=== PATIENT | female | born 1940 | race Hispanic/Latino ===

== ENCOUNTER 2017-11-06 09:00 | Inpatient (IN) | payer MEDICARE ==
[2017-11-06 09:07] VITALS: BMI 27.3
--- NOTE | 2017-11-06 10:47 | ED PDOC ---
HPI: General Adult Time Seen by Provider: 11/06/17 09:37 Chief Complaint (Nursing): Weakness/Neurological Deficit Chief Complaint (Provider): Weakness/Neurological Deficit History Per: Patient History/Exam Limitations: no limitations Onset/Duration Of Symptoms: Days (x 1 week) Additional Complaint(s): 77 year old female with history of CAD, A-fib, a pacemaker placement and a shunt reports to the ED c/o generalized weakness and diarrhea, onset 1 week. Reports she had a cold and then diarrhea for one week. Regularly has dialysis Monday, Monday and Monday. Last treatment was Monday because she felt too unwell to go today. Denies fever, abdominal pain, chest pain, shortness of breath, vomiting, leg swelling. PMD: Dr. Smith at [facility]. Past Medical History Reviewed: Historical Data, Nursing Documentation, Vital Signs Vital Signs: Last Vital Signs Temp 97 F L 11/06/17 09:05 Pulse 70 11/06/17 14:24 Resp 18 11/06/17 14:24 BP 129/44 L 11/06/17 14:24 Pulse Ox 100 11/06/17 13:44 - Medical History PMH: Anemia, Atrial Fibrillation, Cardia Arrhythmia, Diabetes, HTN, Hypercholesterolemia, Malignancy (Breast, Uterus), Peripheral Edema, End Stage Renal Disease, Chronic Kidney Disease Denies: HIV - Surgical History Surgical History: CABG, Pacemaker - Family History Family History: States: Unknown Family Hx - Social History Current smoker - smoking cessation education provided: No Alcohol: None Drugs: Denies - Home Medications Home Medications: Ambulatory Orders Medication Instructions Recorded Sevelamer Carbonate [Renvela] 800 mg PO TID #0 tab 09/25/15 Allopurinol [Zyloprim] 100 mg PO DAILY 02/26/16 Alprazolam [Xanax] 0.5 mg PO BID PRN 02/26/16 Atorvastatin [Lipitor] 20 mg PO HS 02/26/16 B Complex W-C No.20/Folic Acid 1 cap PO QPM 02/26/16 [Carter Caps Softgel] [place]-3 Acid Ethyl Esters [Lovaza] 1 gm PO BID 02/26/16 Cinacalcet [Sensipar] 30 mg PO DAILY 07/15/16 Insulin Glargine,Hum.rec.anlog 10 unit SC BID 11/06/17 [Lantus] Magnesium Oxide [Mag-Oxide] 200 mg PO DAILY 11/06/17 - Allergies Allergies/Adverse Reactions: Allergies Allergy/AdvReac Type Severity Reaction Status Date / Time No Known Allergies Allergy Verified 11/06/17 09:26 Review of Systems ROS Statement: Except As Marked, All Systems Reviewed And Found Negative Constitutional: Negative for: Fever Cardiovascular: Negative for: Chest Pain Respiratory: Negative for: Shortness of Breath Gastrointestinal: Negative for: Vomiting, Abdominal Pain Musculoskeletal: Negative for: Other (leg swelling) Physical Exam - Reviewed Nursing Documentation Reviewed: Yes Vital Signs Reviewed: Yes - Physical Exam Appears: Positive for: Non-toxic, No Acute Distress Head Exam: Positive for: ATRAUMATIC, NORMOCEPHALIC Skin: Positive for: Warm, Dry, Pallor Eye Exam: Positive for: EOMI, Normal appearance, PERRL Cardiovascular/Chest: Positive for: Regular Rate, Rhythm Respiratory: Positive for: CNT, Normal Breath Sounds Gastrointestinal/Abdominal: Positive for: Normal Exam, Soft. Negative for: Tenderness, Distended Extremity: Positive for: Normal ROM. Negative for: Tenderness, Deformity Neurologic/Psych: Positive for: Alert, Oriented - Laboratory Results Result Diagrams: 11/06/17 10:51 11/06/17 10:51 - ECG O2 Sat by Pulse Oximetry: 100 (RA) Pulse Ox Interpretation: Normal - Radiology X-Ray: Interpreted by Me, Viewed By Me X-Ray Interpretation: No Acute Disease Medical Decision Making Medical Decision Making: TIme: 10:00 Impression: generalized fatigue (most likely due to dehydration) and acute diarrhea (most likely viral) Differential diagnoses: bacterial colitis Initial Plan: --CMP --CBC --PTT --Prothrombin time --Chest X-ray --Stool cx Her freelance digital project manager is Dr. Pizarro Her fur polisher is Dr. Hubbard Note, possible need for emergent dialysis because of symptoms. Time: 12:12 --Consulted Stevie Matute to arrange for dialysis treatment. Patient will be admitted to the hospital in observation due to acute chronic renal failure and need for dialysis. Scribe Attestation: Documented by Wanda Dotson, acting as a scribe for Lilian Vieira MD Provider Scribe Attestation: All medical record entries made by the Scribe were at my direction and personally dictated by me. I have reviewed the chart and agree that the record accurately reflects my personal performance of the history, physical exam, medical decision making, and the department course for this patient. I have also personally directed, reviewed, and agree with the discharge instructions and disposition. Disposition - Clinical Impression Clinical Impression: ESRD (end stage renal disease) - Patient ED Disposition Is Patient to be Admitted: Yes Discussed With DrLyly: Rafy Solis Doctor Will See Patient In The: Hospital Counseled Patient/Family Regarding: Studies Performed, Diagnosis - Disposition Disposition Time: 12:47 Condition: FAIR - Pt Status Changed To: Hospital Disposition Of: Observation - POA Present On Arrival: None
[2017-11-06 10:56] LABS: BASO # 0.1 K/uL (0.0-0.2); EOS # 0.1 K/uL (0.0-0.7); EOS % 0.8 % (0.0-4.0); HEMOGLOBIN 8.8 g/dL (12.0-16.0); LYMPH # 0.8 K/uL (1.0-4.3); LYMPH % 8.9 % (20.0-40.0); MEAN CELL VOLUME 96.3 fl (81.0-99.0); MEAN CORPUSCULAR HEMOGLOBIN 32.2 pg (27.0-31.0); MEAN CORPUSCULAR HGB CONC 33.5 g/dL (33.0-37.0); MEAN PLATELET VOLUME 9.7 fl (7.2-11.7); MONO # 0.4 K/uL (0.0-0.8); MONO % 4.8 % (0.0-10.0); NEUT # 7.8 K/uL (1.8-7.0); NEUT % 84.5 % (50.0-75.0); NRBC % 0.1 % (0.0-0.0); PLATELET COUNT 133 K/uL (130-400); RBC 2.73 Mil/uL (3.80-5.20); RED CELL DISTRIBUTION WIDTH 16.2 % (11.5-14.5); WHITE BLOOD COUNT 9.3 K/uL (4.8-10.8)
[2017-11-06 11:22] LABS: ALB/GLOB RATIO 1.4 (1.0-2.1); ALBUMIN 3.8 g/dL (3.5-5.0); CALCIUM 9.2 mg/dL (8.4-10.2)
[2017-11-06 11:36] LABS: INR 1.1 (0.9-1.2); PROTHROMBIN TIME 12.6 Seconds (9.8-13.1)
[2017-11-06 11:51] LABS: ANISOCYTOSIS SLIGHT; LYMPHOCYTE 13 % (20-50); MONOCYTE 3 % (0-10); NEUTROPHIL 84 % (42-75); PLATELET ESTIMATE NORMAL (NORMAL); TOTAL CELLS COUNTED 100
[2017-11-06 11:52] LABS: HYPOCHROMIC MODERATE; OVALOCYTES SLIGHT; TEARDROP CELLS SLIGHT
--- NOTE | 2017-11-06 13:15 | RAD ---
PROCEDURE: CHEST RADIOGRAPH, 1 VIEW HISTORY: dyspnea COMPARISON: Comparison chest dated 02/28/2016 FINDINGS: LUNGS: The central pulmonary vasculature is slightly increased ; rule out mild developing or chronic compensated pulmonary edema/ CHF. Suspect small bilateral effusions as well as mild bibasilar atelectasis. PLEURA: As above. No evidence of pneumothorax CARDIOVASCULAR: Sternotomy wires and prostatic valve replacement again noted. Interval placement single lead pacemaker. OSSEOUS STRUCTURES: No significant abnormalities. VISUALIZED UPPER ABDOMEN: Normal. OTHER FINDINGS: None. IMPRESSION: The central pulmonary vasculature is slightly increased ; rule out mild developing or chronic compensated pulmonary edema/ CHF. Suspect small bilateral effusions as well as mild bibasilar atelectasis.
[2017-11-06] MEDS: Omega-3-Acid Ethyl Esters 1 GM Cap PO SCH (16:39)
[2017-11-06] MEDS: Insulin Detemir 100 Units/ml Inj SC SCH (16:39)
[2017-11-06] MEDS: Multivitamin Vitamin B Complex (Nephro-Vite) Tab PO SCH (18:33)
--- NOTE | 2017-11-06 20:32 | CP.PCM.CON ---
History of Present Illness - History of Present Illness History of Present Illness: REASONS FOR CONSULT : ESRD ON HD ANEMIA OF CKD .. PT IS WELL KNOWN TO ME .. HAS MMP AND ON HD FOR THE LAST 2-3 YEARS CASE D/W LINDSEY ARMIJO AT LENGTH Time Seen by Provider: 11/06/17 09:37 Chief Complaint (Nursing): Weakness/Neurological Deficit Chief Complaint (Provider): Weakness/Neurological Deficit History Per: Patient History/Exam Limitations: no limitations Onset/Duration Of Symptoms: Days (x 1 week) Additional Complaint(s): 77 year old female with history of CAD, A-fib, a pacemaker placement and a shunt reports to the ED c/o generalized weakness and diarrhea, onset 1 week. Reports she had a cold and then diarrhea for one week. Regularly has dialysis Monday, Monday and Monday. Last treatment was Monday because she felt too unwell to go today. Denies fever, abdominal pain, chest pain, shortness of breath, vomiting, leg swelling. PMD: Dr. Smith at [facility]. Past Medical History Reviewed: Historical Data, Nursing Documentation, Vital Signs Vital Signs: Last Vital Signs Temp 97 F L 11/06/17 09:05 Pulse 70 11/06/17 14:24 Resp 18 11/06/17 14:24 BP 129/44 L 11/06/17 14:24 Pulse Ox 100 11/06/17 13:44 - Medical History PMH: Anemia, Atrial Fibrillation, Cardia Arrhythmia, Diabetes, HTN, Hypercholesterolemia, Malignancy (Breast, Uterus), Peripheral Edema, End Stage Renal Disease, Chronic Kidney Disease Denies: HIV - Surgical History Surgical History: CABG, Pacemaker - Family History Family History: States: Unknown Family Hx - Social History Current smoker - smoking cessation education provided: No Alcohol: None Drugs: Denies - Home Medications Home Medications: Ambulatory Orders Medication Instructions Recorded Sevelamer Carbonate [Renvela] 800 mg PO TID #0 tab 09/25/15 Allopurinol [Zyloprim] 100 mg PO DAILY 02/26/16 Alprazolam [Xanax] 0.5 mg PO BID PRN 02/26/16 Atorvastatin [Lipitor] 20 mg PO HS 02/26/16 B Complex W-C No.20/Folic Acid 1 cap PO QPM 02/26/16 [Carter Caps Softgel] [place]-3 Acid Ethyl Esters [Lovaza] 1 gm PO BID 02/26/16 Cinacalcet [Sensipar] 30 mg PO DAILY 07/15/16 Insulin Glargine,Hum.rec.anlog 10 unit SC BID 11/06/17 [Lantus] Magnesium Oxide [Mag-Oxide] 200 mg PO DAILY 11/06/17 - Allergies Allergies/Adverse Reactions: Allergies Allergy/AdvReac Type Severity Reaction Status Date / Time No Known Allergies Allergy Verified 11/06/17 09:26 Review of Systems ROS Statement: Except As Marked, All Systems Reviewed And Found Negative Constitutional: Negative for: Fever Cardiovascular: Negative for: Chest Pain Respiratory: Negative for: Shortness of Breath Gastrointestinal: Negative for: Vomiting, Abdominal Pain Musculoskeletal: Negative for: Other (leg swelling) Past Patient History - Infectious Disease Hx of Infectious Diseases: None - Tetanus Immunizations Tetanus Immunization: Unknown - Past Medical History & Family History Past Medical History?: Yes - Past Social History Smoking Status: Never Smoked - CARDIAC Hx Atrial Fibrillation: Yes Hx Cardia Arrhythmia: Yes Hx Hypercholesterolemia: Yes Hx Hypertension: Yes Hx Pacemaker: Yes Hx Peripheral Edema: Yes - PULMONARY Hx Respiratory Disorders: No - NEUROLOGICAL HX Cerebrovascular Accident: Yes - HEENT Hx Blind: Yes (right eye blindness) Other/Comment: Retinal detachment - RENAL Hx Chronic Kidney Disease: Yes - ENDOCRINE/METABOLIC Hx Diabetes Mellitus Type 2: Yes - HEMATOLOGICAL/ONCOLOGICAL Hx Anemia: Yes Hx Human Immunodeficiency Virus (HIV): No - MUSCULOSKELETAL/RHEUMATOLOGICAL Hx Falls: Yes Hx Gout: Yes - GENITOURINARY/GYNECOLOGICAL Hx Urinary Tract Infection: Yes - PSYCHIATRIC Hx Substance Use: No - SURGICAL HISTORY Hx Coronary Artery Bypass Graft: Yes - ANESTHESIA Hx Anesthesia: Yes Hx Anesthesia Reactions: Yes Hx Malignant Hyperthermia: No Meds Allergies/Adverse Reactions: Allergies Allergy/AdvReac Type Severity Reaction Status Date / Time No Known Allergies Allergy Verified 11/06/17 09:26 - Medications Medications: Current Medications Allopurinol (Zyloprim) 100 mg PO DAILY [facility] Alprazolam (Xanax) 0.5 mg PO BID PRN PRN Reason: Anxiety Atorvastatin Calcium (Lipitor) 20 mg PO HS [facility] Cinacalcet (Sensipar) 30 mg PO DAILY [facility] Insulin Detemir (Levemir) 10 units SC BID [facility] Last Admin: 11/06/17 16:39 Dose: 10 units Magnesium Oxide (Mag-Ox) 200 mg PO DAILY [facility] [id number] Ethyl Esters (Lovaza) 1 gm PO BID [facility] Last Admin: 11/06/17 16:39 Dose: 1 gm Sevelamer HCl (Renagel) 800 mg PO TID [facility] Last Admin: 11/06/17 16:40 Dose: 800 mg Vitamin B Complex/Vit C/Folic Acid (Nephro-Clayton) 1 tab PO QPM [facility] Last Admin: 11/06/17 18:33 Dose: 1 tab Results - Vital Signs Recent Vital Signs: Last Vital Signs Temp 97 F L 11/06/17 09:05 Pulse 70 11/06/17 14:24 Resp 20 11/06/17 15:22 BP 129/44 L 11/06/17 14:24 Pulse Ox 100 11/06/17 15:13 - Labs Result Diagrams: 11/06/17 10:51 11/06/17 10:51 Labs: Laboratory Results - last 24 hr 11/06/17 11/06/17 11/06/17 10:23 10:51 10:51 WBC 9.3 RBC 2.73 L Hgb 8.8 L Hct 26.3 L MCV 96.3 D MCH 32.2 H MCHC 33.5 RDW 16.2 H Plt Count 133 MPV 9.7 Neut % (Auto) 84.5 H Lymph % (Auto) 8.9 L [place] % (Auto) 4.8 Eos % (Auto) 0.8 Baso % (Auto) 1.0 Neut # 7.8 H Lymph # 0.8 L [place] # 0.4 Eos # 0.1 Baso # 0.1 Neutrophils % (Manual) 84 H Lymphocytes % (Manual) 13 L Monocytes % (Manual) 3 Platelet Estimate Normal Hypochromasia (manual) Moderate Basophilic Stippling Slight Anisocytosis (manual) Slight Tear Drop Cells Slight Ovalocytes Slight PT INR APTT Sodium 144 Potassium 4.0 Chloride 102 Carbon Dioxide 28 Anion Gap 18 BUN 72 H Creatinine 6.0 H Est GFR ( Amer) 8 Est GFR (Non-Af Amer) 7 POC Glucose (mg/dL) 108 Random Glucose 104 Calcium 9.2 Total Bilirubin 1.6 H AST 54 H ALT 30 Alkaline Phosphatase 114 Total Protein 6.5 Albumin 3.8 Globulin 2.7 Albumin/Globulin Ratio 1.4 11/06/17 11/06/17 11:10 15:43 WBC RBC Hgb Hct MCV MCH MCHC RDW Plt Count MPV Neut % (Auto) Lymph % (Auto) [place] % (Auto) Eos % (Auto) Baso % (Auto) Neut # Lymph # [place] # Eos # Baso # Neutrophils % (Manual) Lymphocytes % (Manual) Monocytes % (Manual) Platelet Estimate Hypochromasia (manual) Basophilic Stippling Anisocytosis (manual) Tear Drop Cells Ovalocytes PT 12.6 INR 1.1 APTT 29.0 Sodium Potassium Chloride Carbon Dioxide Anion Gap BUN Creatinine Est GFR ( Amer) Est GFR (Non-Af Amer) POC Glucose (mg/dL) 133 H Random Glucose Calcium Total Bilirubin AST ALT Alkaline Phosphatase Total Protein Albumin Globulin Albumin/Globulin Ratio Assessment & Plan - Assessment and Plan (Free Text) Assessment: ESRD ON HD .. WILL GIVE HD TDAY AND SCHEDULE FOR HD ON ANEMIA OF CKD .. WILL DO ANEMIA W/U .. START EPO AND VENOFER MMP P : C/O CURRENT MEDS C/O HD ANEMIA W/U AND MANAGEMENT - Date & Time Date: 11/06/17 Time: 16:00
[2017-11-07 06:29] LABS: BASO # 0.1 K/uL (0.0-0.2); BASO % 0.7 % (0.0-2.0); EOS # 0.1 K/uL (0.0-0.7); EOS % 1.5 % (0.0-4.0); HEMOGLOBIN 8.2 g/dL (12.0-16.0); LYMPH # 1.1 K/uL (1.0-4.3); LYMPH % 14.9 % (20.0-40.0); MEAN CELL VOLUME 97.5 fl (81.0-99.0); MEAN CORPUSCULAR HEMOGLOBIN 31.7 pg (27.0-31.0); MEAN CORPUSCULAR HGB CONC 32.5 g/dL (33.0-37.0); MEAN PLATELET VOLUME 9.6 fl (7.2-11.7); MONO # 0.6 K/uL (0.0-0.8); MONO % 7.7 % (0.0-10.0); NEUT # 5.8 K/uL (1.8-7.0); NEUT % 75.2 % (50.0-75.0); NRBC % 0.1 % (0.0-0.0); RBC 2.58 Mil/uL (3.80-5.20); RED CELL DISTRIBUTION WIDTH 16.2 % (11.5-14.5); WHITE BLOOD COUNT 7.7 K/uL (4.8-10.8)
[2017-11-07 07:06] LABS: ALB/GLOB RATIO 1.3 (1.0-2.1); ALBUMIN 3.5 g/dL (3.5-5.0); CALCIUM 9.4 mg/dL (8.4-10.2)
--- NOTE | 2017-11-07 08:04 | CP.PCM.HP ---
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 states missed session r/t not feeling well. has had "cold" x 2 wks since aortic valve replacement. at present pt states she is feeling better. no f/c, n/v/d. states diarrhea stopped and now stool is hard. no blood in stool. no abd pain. pt was for mobile dialysis last night but they were unable to come. will be dialysed today Present on Admission - Present on Admission Any Indicators Present on Admission: No Review of Systems - EENT Nose/Mouth/Throat: As Per HPI, Nasal Congestion Past Patient History - Infectious Disease Hx of Infectious Diseases: None - Tetanus Immunizations Tetanus Immunization: Unknown - Past Medical History & Family History Past Medical History?: Yes - Past Social History Smoking Status: Never Smoked - CARDIAC Hx Atrial Fibrillation: Yes Hx Cardia Arrhythmia: Yes Hx Hypercholesterolemia: Yes Hx Hypertension: Yes Hx Pacemaker: Yes Hx Peripheral Edema: Yes - PULMONARY Hx Respiratory Disorders: No - NEUROLOGICAL HX Cerebrovascular Accident: Yes - HEENT Hx Blind: Yes (right eye blindness) Other/Comment: Retinal detachment - RENAL Hx Chronic Kidney Disease: Yes - ENDOCRINE/METABOLIC Hx Diabetes Mellitus Type 2: Yes - HEMATOLOGICAL/ONCOLOGICAL Hx Anemia: Yes Hx Human Immunodeficiency Virus (HIV): No - MUSCULOSKELETAL/RHEUMATOLOGICAL Hx Falls: Yes Hx Gout: Yes - GENITOURINARY/GYNECOLOGICAL Hx Urinary Tract Infection: Yes - PSYCHIATRIC Hx Substance Use: No - SURGICAL HISTORY Hx Coronary Artery Bypass Graft: Yes - ANESTHESIA Hx Anesthesia: Yes Hx Anesthesia Reactions: Yes Hx Malignant Hyperthermia: No Meds Allergies/Adverse Reactions: Allergies Allergy/AdvReac Type Severity Reaction Status Date / Time No Known Allergies Allergy Verified 11/06/17 09:26 Physical Exam - Constitutional Appears: Well, Non-toxic, No Acute Distress - Head Exam Head Exam: ATRAUMATIC, NORMAL INSPECTION, NORMOCEPHALIC - Eye Exam Eye Exam: EOMI, Normal appearance, PERRL Pupil Exam: NORMAL ACCOMODATION, PERRL - ENT Exam ENT Exam: Mucous Membranes Moist, Normal Exam - Neck Exam Neck exam: Positive for: Normal Inspection - Respiratory Exam Respiratory Exam: Clear to Auscultation Bilateral, NORMAL BREATHING PATTERN - Cardiovascular Exam Cardiovascular Exam: REGULAR RHYTHM, RRR, +S1, +S2, Systolic Murmur - GI/Abdominal Exam GI & Abdominal Exam: Normal Bowel Sounds, Soft. absent: Tenderness - Extremities Exam Extremities exam: Positive for: full ROM, normal capillary refill, normal inspection, pedal pulses present - Back Exam Back exam: NORMAL INSPECTION - Neurological Exam Neurological exam: Alert, CN II-XII Intact, Normal Gait, Oriented x3, Reflexes Normal - Psychiatric Exam Psychiatric exam: Normal Affect, Normal Mood - Skin Skin Exam: Dry, Intact, Normal Color, Warm Results - Vital Signs Recent Vital Signs: Last Vital Signs Temp 98.0 F 11/07/17 07:52 Pulse 71 11/07/17 07:52 Resp 18 11/07/17 07:52 BP 125/73 11/07/17 07:52 Pulse Ox 95 11/07/17 07:52 - Labs Result Diagrams: 11/07/17 05:30 11/07/17 05:30 Labs: Laboratory Results - last 24 hr 11/06/17 11/06/17 11/06/17 10:23 10:51 10:51 WBC 9.3 RBC 2.73 L Hgb 8.8 L Hct 26.3 L MCV 96.3 D MCH 32.2 H MCHC 33.5 RDW 16.2 H Plt Count 133 MPV 9.7 Neut % (Auto) 84.5 H Lymph % (Auto) 8.9 L [place] % (Auto) 4.8 Eos % (Auto) 0.8 Baso % (Auto) 1.0 Neut # 7.8 H Lymph # 0.8 L [place] # 0.4 Eos # 0.1 Baso # 0.1 Neutrophils % (Manual) 84 H Lymphocytes % (Manual) 13 L Monocytes % (Manual) 3 Platelet Estimate Normal Hypochromasia (manual) Moderate Basophilic Stippling Slight Anisocytosis (manual) Slight Tear Drop Cells Slight Ovalocytes Slight PT INR APTT Sodium 144 Potassium 4.0 Chloride 102 Carbon Dioxide 28 Anion Gap 18 BUN 72 H Creatinine 6.0 H Est GFR ( Amer) 8 Est GFR (Non-Af Amer) 7 POC Glucose (mg/dL) 108 Random Glucose 104 Calcium 9.2 Total Bilirubin 1.6 H AST 54 H ALT 30 Alkaline Phosphatase 114 Total Protein 6.5 Albumin 3.8 Globulin 2.7 Albumin/Globulin Ratio 1.4 11/06/17 11/06/17 11/06/17 11:10 15:43 22:06 WBC RBC Hgb Hct MCV MCH MCHC RDW Plt Count MPV Neut % (Auto) Lymph % (Auto) [place] % (Auto) Eos % (Auto) Baso % (Auto) Neut # Lymph # [place] # Eos # Baso # Neutrophils % (Manual) Lymphocytes % (Manual) Monocytes % (Manual) Platelet Estimate Hypochromasia (manual) Basophilic Stippling Anisocytosis (manual) Tear Drop Cells Ovalocytes PT 12.6 INR 1.1 APTT 29.0 Sodium Potassium Chloride Carbon Dioxide Anion Gap BUN Creatinine Est GFR ( Amer) Est GFR (Non-Af Amer) POC Glucose (mg/dL) 133 H 171 H Random Glucose Calcium Total Bilirubin AST ALT Alkaline Phosphatase Total Protein Albumin Globulin Albumin/Globulin Ratio 11/07/17 11/07/17 11/07/17 05:30 05:30 05:54 WBC 7.7 RBC 2.58 L Hgb 8.2 L Hct 25.2 L MCV 97.5 MCH 31.7 H MCHC 32.5 L RDW 16.2 H Plt Count 123 L MPV 9.6 Neut % (Auto) 75.2 H Lymph % (Auto) 14.9 L [place] % (Auto) 7.7 Eos % (Auto) 1.5 Baso % (Auto) 0.7 Neut # 5.8 Lymph # 1.1 [place] # 0.6 Eos # 0.1 Baso # 0.1 Neutrophils % (Manual) Lymphocytes % (Manual) Monocytes % (Manual) Platelet Estimate Hypochromasia (manual) Basophilic Stippling Anisocytosis (manual) Tear Drop Cells Ovalocytes PT INR APTT Sodium 141 Potassium 4.0 Chloride 101 Carbon Dioxide 27 Anion Gap 17 BUN 79 H Creatinine 6.8 H Est GFR ( Amer) 7 Est GFR (Non-Af Amer) 6 POC Glucose (mg/dL) 127 H Random Glucose 117 H Calcium 9.4 Total Bilirubin 1.4 H AST 26 ALT 37 Alkaline Phosphatase 125 Total Protein 6.2 L Albumin 3.5 Globulin 2.7 Albumin/Globulin Ratio 1.3 Assessment & Plan (1) ESRD (end stage renal disease) Assessment and Plan: dialysis todaythen likely dc nephro Status: Chronic (2) DM type 2 (diabetes mellitus, type 2) Assessment and Plan: cont home meds fsbg Status: Acute (3) DVT prophylaxis Assessment and Plan: scd nad ae hose ambulation lovenox if admitted over 24h Status: Acute (4) H/O heart valve replacement with porcine valve Assessment and Plan: cont home meds cardio is aware Status: Chronic - Assessment and Plan (Free Text) Assessment: pt upset about being in hospital and not feeling well since her surgery. will do pt/ot eval and have SW/CM eval pt. pt states she does not wish to go to [facility] however. Decision To Admit - Pt Status Changed To: Hospital Disposition Of: Observation - . Bed Request Type: Med/Surg Admitting Physician: Layla Escalante
--- NOTE | 2017-11-07 08:31 | CARD ---
APPROVED REPORT EKG Measurement Heart [id number] <Conclusion> Ventricular paced rhythm Abnormal ECG
[2017-11-07] MEDS: Omega-3-Acid Ethyl Esters 1 GM Cap PO SCH ×2 (08:58→17:05)
[2017-11-07] MEDS: Magnesium Oxide 400 mg Tab UD PO SCH (08:59)
[2017-11-07] MEDS: Insulin Detemir 100 Units/ml Inj SC SCH ×2 (09:02→18:08)
[2017-11-07] MEDS: Multivitamin Vitamin B Complex (Nephro-Vite) Tab PO SCH (17:05)
[2017-11-07 21:30] LABS: HEPATITIS B SURFACE AG NEGATIVE (NEGATIVE)
[2017-11-07 21:47] LABS: HEPATITIS C ANTIBODY Negative (NEGATIVE)
--- NOTE | 2017-11-07 22:24 | CP.PCM.PN ---
Subjective - Date & Time of Evaluation Date of Evaluation: 11/07/17 Time of Evaluation: 15:00 - Subjective Subjective: SEEN ON RENAL F/U SEEN ON HD APPEARS DEPRESSED AND WITHDRAWN .. IN NAD WENY 3 TIMES TODAY .. STOOL WAS WELL FORMED PER RN WANTED TO STAY TILL TOMORROW AND GET HER HD THEN TO GO HOME ALL PREVIOUS EMR REVIEWED Objective - Vital Signs/Intake and Output Vital Signs (last 24 hours): Temp Pulse Resp BP Pulse Ox 97.4 F L 71 18 113/52 L 98 11/07/17 16:15 11/07/17 16:15 11/07/17 16:15 11/07/17 16:15 11/07/17 16:15 - Medications Medications: Current Medications Allopurinol (Zyloprim) 100 mg PO DAILY [facility] Last Admin: 11/07/17 09:00 Dose: 100 mg Alprazolam (Xanax) 0.5 mg PO BID PRN PRN Reason: Anxiety Atorvastatin Calcium (Lipitor) 20 mg PO HS [facility] Last Admin: 11/07/17 21:22 Dose: 20 mg Cinacalcet (Sensipar) 30 mg PO DAILY [facility] Last Admin: 11/07/17 09:00 Dose: 30 mg Insulin Detemir (Levemir) 10 units SC BID [facility] Last Admin: 11/07/17 18:08 Dose: 10 units Magnesium Oxide (Mag-Ox) 200 mg PO DAILY [facility] Last Admin: 11/07/17 08:59 Dose: 200 mg [id number] Ethyl Esters (Lovaza) 1 gm PO BID [facility] Last Admin: 11/07/17 17:05 Dose: 1 gm Sevelamer HCl (Renagel) 800 mg PO TID [facility] Last Admin: 11/07/17 17:05 Dose: 800 mg Vitamin B Complex/Vit C/Folic Acid (Nephro-[place]) 1 tab PO QPM [facility] Last Admin: 11/07/17 17:05 Dose: 1 tab - Labs Labs: 11/07/17 05:30 11/07/17 05:30 PT 12.6 Seconds (9.8-13.1) 11/06/17 11:10 INR 1.1 (0.9-1.2) 11/06/17 11:10 APTT 29.0 Seconds (25.6-37.1) 01/08/18 11:10 Assessment and Plan - Assessment and Plan (Free Text) Assessment: ESRD ON HF M W F .. TO BE C/O ANEMIA OF CKD .. ON EPO .. WILL ROBERTO MICHELLE ON HD MMP P : RECIEVED HER HD TODAY .. FOR HER SCHEDULED HD IN AM AROUND 11 AM ..THEN D/C NEEDS BACCID ONE OR TWO TAB DAILY C/O CURRENT CARE
[2017-11-08 00:06] VITALS: TEMP 98.1
[2017-11-08 06:16] LABS: BASO # 0.1 K/uL (0.0-0.2); BASO % 1.1 % (0.0-2.0); EOS # 0.1 K/uL (0.0-0.7); EOS % 1.8 % (0.0-4.0); HEMOGLOBIN 8.2 g/dL (12.0-16.0); LYMPH # 1.1 K/uL (1.0-4.3); LYMPH % 17.1 % (20.0-40.0); MEAN CELL VOLUME 96.9 fl (81.0-99.0); MEAN CORPUSCULAR HEMOGLOBIN 31.4 pg (27.0-31.0); MEAN CORPUSCULAR HGB CONC 32.4 g/dL (33.0-37.0); MEAN PLATELET VOLUME 9.4 fl (7.2-11.7); MONO # 0.6 K/uL (0.0-0.8); MONO % 9.3 % (0.0-10.0); NEUT # 4.5 K/uL (1.8-7.0); NEUT % 70.7 % (50.0-75.0); RBC 2.62 Mil/uL (3.80-5.20); RED CELL DISTRIBUTION WIDTH 16.3 % (11.5-14.5); WHITE BLOOD COUNT 6.4 K/uL (4.8-10.8)
[2017-11-08 06:24] LABS: ALB/GLOB RATIO 1.2 (1.0-2.1); ALBUMIN 3.6 g/dL (3.5-5.0); CALCIUM 9.1 mg/dL (8.4-10.2)
--- NOTE | 2017-11-08 07:18 | CP.PCM.PN ---
Subjective - Date & Time of Evaluation Date of Evaluation: 11/08/17 Time of Evaluation: 07:17 - Subjective Subjective: no f/c, n/v/d. minimal cough. no congestion. am labs noted. cbc appears about pts norm, for dialysis today am then dc home. Objective - Vital Signs/Intake and Output Vital Signs (last 24 hours): Temp Pulse Resp BP Pulse Ox 98.1 F 68 19 127/60 97 11/08/17 00:06 11/08/17 00:06 11/08/17 00:06 11/08/17 00:06 11/08/17 00:06 - Medications Medications: Current Medications Allopurinol (Zyloprim) 100 mg PO DAILY [facility] Last Admin: 11/07/17 09:00 Dose: 100 mg Alprazolam (Xanax) 0.5 mg PO BID PRN PRN Reason: Anxiety Atorvastatin Calcium (Lipitor) 20 mg PO HS [facility] Last Admin: 11/07/17 21:22 Dose: 20 mg Cinacalcet (Sensipar) 30 mg PO DAILY [facility] Last Admin: 11/07/17 09:00 Dose: 30 mg Insulin Detemir (Levemir) 10 units SC BID [facility] Last Admin: 11/07/17 18:08 Dose: 10 units Magnesium Oxide (Mag-Ox) 200 mg PO DAILY [facility] Last Admin: 11/07/17 08:59 Dose: 200 mg [id number] Ethyl Esters (Lovaza) 1 gm PO BID [facility] Last Admin: 11/07/17 17:05 Dose: 1 gm Sevelamer HCl (Renagel) 800 mg PO TID [facility] Last Admin: 11/07/17 17:05 Dose: 800 mg Vitamin B Complex/Vit C/Folic Acid (Nephro-Clayton) 1 tab PO QPM [facility] Last Admin: 11/07/17 17:05 Dose: 1 tab - Labs Labs: 11/08/17 05:30 11/08/17 05:30 PT 12.6 Seconds (9.8-13.1) 11/06/17 11:10 INR 1.1 (0.9-1.2) 11/06/17 11:10 APTT 29.0 Seconds (25.6-37.1) 11/06/17 11:10 - Constitutional Appears: Well, Non-toxic, No Acute Distress - Head Exam Head Exam: ATRAUMATIC, NORMAL INSPECTION, NORMOCEPHALIC - Eye Exam Eye Exam: EOMI, Normal appearance, PERRL Pupil Exam: NORMAL ACCOMODATION, PERRL - ENT Exam ENT Exam: Mucous Membranes Moist, Normal Exam - Neck Exam Neck Exam: Full ROM, Normal Inspection. absent: Lymphadenopathy - Respiratory Exam Respiratory Exam: Clear to Ausculation Bilateral, NORMAL BREATHING PATTERN - Cardiovascular Exam Cardiovascular Exam: REGULAR RHYTHM, RRR, +S1, +S2. absent: Murmur - GI/Abdominal Exam GI & Abdominal Exam: Soft, Normal Bowel Sounds. absent: Tenderness - Extremities Exam Extremities Exam: Full ROM, Normal Capillary Refill, Normal Inspection. 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
[2017-11-08 08:28] VITALS: BP 145/57; PULSE 72; RESP 20; O2SAT 99
[2017-11-08] MEDS: Insulin Detemir 100 Units/ml Inj SC SCH (08:49)
[2017-11-08] MEDS: Omega-3-Acid Ethyl Esters 1 GM Cap PO SCH (08:49)
[2017-11-08] MEDS: Magnesium Oxide 400 mg Tab UD PO SCH (08:50)
--- NOTE | 2017-11-08 14:02 | CP.PCM.DIS ---
Provider - Provider Date of Admission: 11/07/17 18:02 Attending physician: Layla Escalante MD Time Spent in preparation of Discharge (in minutes): 15 Diagnosis - Discharge Diagnosis (1) ESRD (end stage renal disease) Status: Chronic (2) DM type 2 (diabetes mellitus, type 2) Status: Acute (3) DVT prophylaxis Status: Acute (4) H/O heart valve replacement with porcine valve Status: Chronic Hospital Course - Lab Results Lab Results: Most Recent Lab Values WBC 6.4 K/uL (4.8-10.8) 11/08/17 05:30 RBC 2.62 Mil/uL (3.80-5.20) L 11/08/17 05:30 Hgb 8.2 g/dL (12.0-16.0) L 11/08/17 05:30 Hct 25.4 % (34.0-47.0) L 11/08/17 05:30 MCV 96.9 fl (81.0-99.0) 11/08/17 05:30 MCH 31.4 pg (27.0-31.0) H 11/08/17 05:30 MCHC 32.4 g/dL (33.0-37.0) L 11/08/17 05:30 RDW 16.3 % (11.5-14.5) H 11/08/17 05:30 Plt Count 108 K/uL (130-400) L 11/08/17 05:30 MPV 9.4 fl (7.2-11.7) 11/08/17 05:30 Neut % (Auto) 70.7 % (50.0-75.0) 11/08/17 05:30 Lymph % (Auto) 17.1 % (20.0-40.0) L 11/08/17 05:30 [place] % (Auto) 9.3 % (0.0-10.0) 11/08/17 05:30 Eos % (Auto) 1.8 % (0.0-4.0) 11/08/17 05:30 Baso % (Auto) 1.1 % (0.0-2.0) 11/08/17 05:30 Neut # 4.5 K/uL (1.8-7.0) 11/08/17 05:30 Lymph # 1.1 K/uL (1.0-4.3) 11/08/17 05:30 [place] # 0.6 K/uL (0.0-0.8) 11/08/17 05:30 Eos # 0.1 K/uL (0.0-0.7) 11/08/17 05:30 Baso # 0.1 K/uL (0.0-0.2) 11/08/17 05:30 Neutrophils % (Manual) 84 % (42-75) H 11/06/17 10:51 Lymphocytes % (Manual) 13 % (20-50) L 11/06/17 10:51 Monocytes % (Manual) 3 % (0-10) 11/06/17 10:51 Platelet Estimate Normal (NORMAL) 11/06/17 10:51 Hypochromasia (manual) Moderate 11/06/17 10:51 Basophilic Stippling Slight 11/06/17 10:51 Anisocytosis (manual) Slight 11/06/17 10:51 Tear Drop Cells Slight 11/06/17 10:51 Ovalocytes Slight 11/06/17 10:51 PT 12.6 Seconds (9.8-13.1) 11/06/17 11:10 INR 1.1 (0.9-1.2) 11/06/17 11:10 APTT 29.0 Seconds (25.6-37.1) 11/06/17 11:10 Sodium 138 mmol/l (132-148) 11/08/17 05:30 Potassium 4.2 MMOL/L (3.6-5.0) 11/08/17 05:30 Chloride 99 mmol/L (98-107) 11/08/17 05:30 Carbon Dioxide 29 mmol/L (22-30) 11/08/17 05:30 Anion Gap 14 (10-20) 11/08/17 05:30 BUN 40 mg/dl (7-17) H 11/08/17 05:30 Creatinine 3.9 mg/dl (0.7-1.2) H 11/08/17 05:30 Est GFR ( Amer) 14 11/08/17 05:30 Est GFR (Non-Af Amer) 11 11/08/17 05:30 POC Glucose (mg/dL) 137 mg/dL (65-110) H 01/10/18 10:36 Random Glucose 89 mg/dL (65-105) 11/08/17 05:30 Calcium 9.1 mg/dL (8.4-10.2) 11/08/17 05:30 Total Bilirubin 1.6 mg/dl (0.2-1.3) H 11/08/17 05:30 AST 27 U/L (14-36) 11/08/17 05:30 ALT 31 U/L (9-52) 11/08/17 05:30 Alkaline Phosphatase 123 U/L (38-126) 11/08/17 05:30 Total Protein 6.5 G/DL (6.3-8.2) 11/08/17 05:30 Albumin 3.6 g/dL (3.5-5.0) 11/08/17 05:30 Globulin 2.9 gm/dL (2.2-3.9) 11/08/17 05:30 Albumin/Globulin Ratio 1.2 (1.0-2.1) 11/08/17 05:30 Hep Bs Antigen Negative (NEGATIVE) 11/07/17 14:52 Hep Bs Antibody Positive (NEGATIVE) 11/07/17 14:52 Hepatitis C Antibody Negative (NEGATIVE) 11/07/17 14:52 Discharge Exam - Head Exam Head Exam: ATRAUMATIC, NORMAL INSPECTION, NORMOCEPHALIC Discharge Plan - Follow Up Plan Condition: FAIR Disposition: HOME/ ROUTINE Instructions: Hemodialysis (DC), End Stage Kidney Disease (DC) Additional Instructions: follow up with [facility] 2-3 days continue dialysis mwf final dx-esrd, weakness doing well post dialysis, wants to go home. Referrals: Hal Hubbard MD [Staff Provider] - Rafy Solis, ALFA, FRAUD ANALYST [Advanced Practice Nurse] -
== END 2017-11-08 13:58 | disposition home or self-care (01) | DRG 682 ==
LOC: H.ER 09:00 → H.ERHOLD 12:45 → H.MEDSURG1 14:37 → INTOOBSV 11-07 18:02 → OBSVTOIN 11-07 18:02
PROVIDERS: ADMIT Family Medicine; ATTEND Family Medicine
PROC: 5A1D70Z Performance of Urinary Filtration, Intermittent, Less than 6 Hours Per Day (ICD-10-PCS; principal; 2017-11-08)
DX: I12.0 Hypertensive chronic kidney disease with stage 5 chronic kidney disease or end stage renal disease (principal); N18.6 End stage renal disease; E11.22 Type 2 diabetes mellitus with diabetic chronic kidney disease; I48.91 Unspecified atrial fibrillation; D63.1 Anemia in chronic kidney disease; E78.00 Pure hypercholesterolemia, unspecified; I25.10 Atherosclerotic heart disease of native coronary artery without angina pectoris; Z95.1 Presence of aortocoronary bypass graft; Z95.2 Presence of prosthetic heart valve; Z95.0 Presence of cardiac pacemaker; Z99.2 Dependence on renal dialysis; R19.7 Diarrhea, unspecified; Z91.15 Patient's noncompliance with renal dialysis

== ENCOUNTER 2018-12-22 11:52 | Emergency (ER) | payer MEDICARE ==
[2018-12-22 11:52] VITALS: BMI 27.3
[2018-12-22 12:02] VITALS: O2SAT 100
[2018-12-22] MEDS ORDERED: Lidocaine 1% Inj (20ml) IJ ONE (12:21)
[2018-12-22] MEDS ORDERED: Tetanus/Diphtheria Toxoids 0.5 ml Syringe IM ONE ×2 (12:21→12:28)
--- NOTE | 2018-12-22 12:26 | ED PDOC ---
HPI: Head Injury <Eyad Baires E - Last Filed: 12/22/18 14:37> History Per: Patient Injury Occurred (Timing): Just Before Arrival Patient States: Fell Striking Head Severity: Mild Additional Complaint(s): Tripped and fell while walking on uneven pavement. Landed face first, sustaining lacerations/abrasions to forehead and bridge of nose. Denies LOC, dizziness or headache. Pt is on ASA for a fib. Also injured right thumb, sustaining laceration. Denies hip, neck or back pain. <Luis Fregoso F - Last Filed: 12/22/18 14:54> Time Seen by Provider: 12/22/18 12:03 Chief Complaint (Nursing): Trauma Past Medical History Vital Signs: Last Vital Signs Temp 97.2 F L 12/22/18 11:59 Pulse 72 12/22/18 11:59 Resp 18 12/22/18 11:59 BP 134/51 L 12/22/18 12:58 Pulse Ox 100 12/22/18 12:30 <Eyad Baires E - Last Filed: 12/22/18 14:37> Vital Signs: Last Vital Signs Temp 97.2 F L 12/22/18 11:59 Pulse 72 12/22/18 11:59 Resp 18 12/22/18 11:59 BP Pulse Ox 100 12/22/18 11:59 - Medical History PMH: Anemia, Atrial Fibrillation, Cardia Arrhythmia, Diabetes, HTN, Hypercholesterolemia, Malignancy (Breast, Uterus), Peripheral Edema, End Stage Renal Disease, Chronic Kidney Disease Denies: HIV - Surgical History Surgical History: CABG, Pacemaker - Family History Family History: States: Unknown Family Hx <Luis Fregoso F - Last Filed: 12/22/18 14:54> - Home Medications Home Medications: Ambulatory Orders Medication Instructions Recorded Sevelamer Carbonate [Renvela] 800 mg PO TID #0 tab 09/25/15 Allopurinol [Zyloprim] 100 mg PO DAILY 02/26/16 Alprazolam [Xanax] 0.5 mg PO BID PRN 02/26/16 Atorvastatin [Lipitor] 20 mg PO HS 02/26/16 B Complex W-C No.20/Folic Acid 1 cap PO QPM 02/26/16 [Holiday Caps Softgel] Amasa-3 Acid Ethyl Esters [Lovaza] 1 gm PO BID 02/26/16 Cinacalcet [Sensipar] 30 mg PO DAILY 07/15/16 Insulin Glargine,Hum.rec.anlog 10 unit SC BID 11/06/17 [Lantus] Magnesium Oxide [Mag-Oxide] 200 mg PO DAILY 11/06/17 - Allergies Allergies/Adverse Reactions: Allergies Allergy/AdvReac Type Severity Reaction Status Date / Time No Known Allergies Allergy Verified 11/06/17 09:26 Review of Systems ROS Statement: Except As Marked, All Systems Reviewed And Found Negative Cardiovascular: Negative for: Chest Pain, Palpitations Musculoskeletal: Positive for: Hand Pain. Negative for: Neck Pain, Back Pain, Leg Pain Neurological: Negative for: Weakness, Numbness, Confusion, Headache, Dizziness <Luis Fregoso - Last Filed: 12/22/18 14:54> Physical Exam - Reviewed Nursing Documentation Reviewed: Yes Vital Signs Reviewed: Yes - Physical Exam Appears: Positive for: Non-toxic, No Acute Distress Head Exam: Positive for: NORMAL INSPECTION (abrasion/ sup laceration to frontal area assoc with soft tissue swelling. No palpable fracture. Superficial abrasion to bridge of nose.). Negative for: ATRAUMATIC Skin: Positive for: Normal Color, Warm, DRY Eye Exam: Positive for: Other (Prosthetic right eye. Left eye pupil round and reactiove. EOMI) ENT: Positive for: Normal ENT Inspection Neck: Positive for: Normal, Painless ROM, Supple Cardiovascular/Chest: Positive for: Irregularly Irregular Respiratory: Positive for: CNT, Normal Breath Sounds Gastrointestinal/Abdominal: Positive for: Normal Exam, Soft Back: Positive for: Normal Inspection. Negative for: Vertebral Tenderness Extremity: Positive for: Normal ROM, Other (No hip tenderness or deformity. Right hand, thumb volar surface DIP 2 cm lac.) Neurologic/Psych: Positive for: Alert, Oriented. Negative for: Motor/Sensory Deficits <Luis Fregoso F - Last Filed: 12/22/18 14:54> - ECG O2 Sat by Pulse Oximetry: 100 <Luis Fregoso - Last Filed: 12/22/18 14:54> Medical Decision Making Medical Decision Making: Advised 24 hr observation as pt had head injury and is on ASA. with possibility of subsequent bleed despite initial nl CT head. Advised repeat CT head while in observation. Pt declines understands risks including intracerebral bleed, delayed subdural hematoma and . States that she has "made her peace with God" <Luis Fregoso F - Last Filed: 12/22/18 14:54> Procedures - Time-Out Type of Procedure: laceration repair Site of Procedure: R thumb Correct Patient (with visual ID + MR# on ID Band): Yes Correct Procedure: Yes Correct Site Marked: Yes PA/Tech: Dequan PAYTON - Laceration/Wound Repair laceration repari Wound Length (cm): 2 Wound's Depth, Shape: superficial, flap Wound Explored: clean Irrigated w/ Saline (ccs): 200 Betadine Prep?: Yes Anesthesia: 1% Lidocaine Volume Anesthetic (ccs): 2 Wound Repaired With: Sutures Suture Size/Type: 5:0, proline Number of Sutures: 8 Layer Closure?: No Wound Complexity: Simple <Eyad Baires E - Last Filed: 12/22/18 14:37> Disposition <Eyad Baires E - Last Filed: 12/22/18 14:37> - Patient ED Disposition Is Patient to be Admitted: No Counseled Patient/Family Regarding: Studies Performed, Diagnosis, Need For Followup - Disposition Disposition: Routine/Home Disposition Time: 14:53 <Luis Fregoso F - Last Filed: 12/22/18 14:54> - Clinical Impression Clinical Impression: Head injury - Disposition Referrals: Fariba Pizarro MD [Staff Provider] - Condition: FAIR Instructions: Closed Head Injury (DC), Laceration Repair Forms: [employer] ([employer]ami)
[2018-12-22] MEDS ORDERED: Lidocaine 2% MPF (5 ml) Inj ONE ×5 (12:33→12:34)
--- NOTE | 2018-12-22 13:04 | CT ---
Date of service: 12/22/2018 PROCEDURE: CT HEAD WITHOUT CONTRAST. HISTORY: r/o bleed COMPARISON: 07/15/2016. TECHNIQUE: Axial computed tomography images were obtained through the head/brain without intravenous contrast. Supplemental Coronal and Sagittal projections created and reviewed. Radiation dose: Total exam DLP = 1011.97 mGy-cm. This CT exam was performed using one or more of the following dose reduction techniques: Automated exposure control, adjustment of the mA and/or kV according to patient size, and/or use of iterative reconstruction technique. FINDINGS: HEMORRHAGE: No intracranial hemorrhage. BRAIN: No mass effect or edema. Cortical and cerebellar atrophy, periventricular small vessel disease. VENTRICLES: Unremarkable. No hydrocephalus. CALVARIUM: Unremarkable. PARANASAL SINUSES: Unremarkable as visualized. No significant inflammatory changes. MASTOID AIR CELLS: Unremarkable as visualized. No inflammatory changes. OTHER FINDINGS: Frontal soft tissue injury/contusion extending from the skin surface to the calvarium. No adjacent underlying calvarial or intracranial abnormality identified. Preseptal ocular prosthesis identified on the right, an incidental finding.. IMPRESSION: No acute intracranial abnormalities. No significant findings to account for the clinical presentation. Frontal soft tissue injury/contusion-laceration.
--- NOTE | 2018-12-22 13:08 | RAD ---
PROCEDURE: Right Hand Radiographs. HISTORY: trauma COMPARISON: None. FINDINGS: BONES: Normal. No fracture. 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 Moderate in degree. SOFT TISSUES: Soft tissue swelling/likely soft tissue contusion right thumb. No visualized radiopaque foreign body. OTHER FINDINGS: None. IMPRESSION: No acute osseous or articular abnormalities.
[2018-12-22] MEDS ORDERED: LIDOCAINE 2% 10ML 20 MG/ML VIAL IJ STA (13:23)
[2018-12-22 16:38] VITALS: BP 133/68; PULSE 68; RESP 17; TEMP 98
--- NOTE | 2018-12-23 10:09 | CARD ---
APPROVED REPORT Date of service: 12/22/2018 EKG Measurement Heart [id number] <Conclusion> Ventricular-paced rhythm Abnormal ECG
== END 2018-12-22 15:20 | disposition home or self-care (01) ==
LOC: H.ER 11:52
DX: S00.81XA Abrasion of other part of head, initial encounter (principal); S01.91XA Laceration without foreign body of unspecified part of head, initial encounter; I12.0 Hypertensive chronic kidney disease with stage 5 chronic kidney disease or end stage renal disease; Z85.3 Personal history of malignant neoplasm of breast; Z95.0 Presence of cardiac pacemaker; Z95.1 Presence of aortocoronary bypass graft; Z85.42 Personal history of malignant neoplasm of other parts of uterus; N18.6 End stage renal disease; Z79.4 Long term (current) use of insulin; E11.9 Type 2 diabetes mellitus without complications; I10 Essential (primary) hypertension; W01.0XXA Fall on same level from slipping, tripping and stumbling without subsequent striking against object, initial encounter; Z79.82 Long term (current) use of aspirin; Z23 Encounter for immunization